=== PATIENT | male | born 1975 | race Hispanic/Latino ===

== ENCOUNTER 2016-10-10 12:20 | Emergency (ER) | payer OTHER ==
[~2016-10-10] VITALS: Ht 172.7 cm; Wt 77.3 kg
[~2016-10-10 12:20] MED LIST: NPR500T PO
[2016-10-10 12:25] VITALS: BP 138/76; PULSE 74; RESP 18; O2SAT 99
--- NOTE | 2016-10-10 12:40 | ED.REPORT ---
HPI-Back Pain Under 42 Date of Service Oct 10, 2016 ED Provider: History of Present Illness: lifting a piece of machinery, had pain in stomach in center first, let the machine go and then lifted machine again. No pain in stomach after that, then pain later in the back on the right lower. Happened around 330 yesterday. machine weighs a great deal, no one tries to lift it by themselves. . Works in [employer], [employer]. has not taken any medication. Did not go to work today. Off on thursday and thursday. primary care is [facility] 10/06 Nursing Notes Stated Complaint: BACK AND ABDOMINAL PAIN Chief Complaint: Back Pain or Injury Nursing Notes Reviewed: Yes Allergies: Coded Allergies: No Known Allergies (Unverified Allergy, Unknown, 01/25/15) Scheduled PRN Naproxen (Naproxen) 500 Mg Tab 500 MG PO BID PRN PRN For Pain General Time Seen by MD: 12:39 Chief Complaint Back pain Hx Obtained From: Patient Sudden in Onset?: Yes Caused by: Lifting Past Medical History Past Medical History Denies Denies: Asthma, Diabetes mellitus Past Surgical History Denies Smoking History Never Smoker Social History Alcohol Use: Denies alcohol use Drug Use: Denies drug use Occupation lives with girlfriend, works in [employer] Ambulatory Status Independent Review of Systems Basic Review of Systems Eyes: Vision NL, No discharge Hematologic: No bleeding, No bruising Psychiatric: Normal thought content Physical Exam Initial Vital Signs Vital Signs (First) Date Time Temp Pulse Resp B/P Pulse Ox O2 Delivery O2 Flow Rate FiO2 10/10/16 12:25 36.0 74 18 138/76 99 Room Air Initial VS: Reviewed, Vital signs normal Head / Eyes: Atraumatic, Normocephalic, PERRL ENT: Mucous membranes moist, Conjunctiva normal, No scleral icterus Neck: Supple, Non-tender, Full range of motion Respiratory: Breath sounds normal, Clear to auscultation, No respiratory distress Cardiovascular: Heart sounds normal, Intact distal pulses Abdomen / GI: Soft, Non-tender, No guarding, No rebound, No distention Lymphatic: No lymphadenopathy Extremities: Vascular intact, Neuro intact, No swelling, No tenderness Skin: Warm, Dry, No cyanosis Psychiatric: Mood/affect normal, Behavior normal, Normal thought content General/Constitutional: Awake, Alert, No acute distress tender on right lumbar area, no midline tenderness, no sign of any rash, no flank pain Neurologic: Oriented X3, Speech NL, No motor deficits, No sensory deficits, CN II - XII intact, Reflexes equal bilat, Cerebellar NL, Memory NL, Gait NL Respiratory / Chest: Atraumatic, Breath sounds NL, Breath sounds = bilat, No respiratory distress Cardiovascular: Heart rate NL, Regular rhythm, Heart sounds NL, No gallop Abdomen: Atraumatic, Soft, Non-tender, McBurney's non-tender Interpretation & Diagnostics Lab Results Interpretation Test 10/10/16 13:26 Hold Urine Received (Received) Lab Results Interpretation: urine is negative Re-Eval/Medical Decision Med Decision/Clinical Course 41 year old presents for evualation of right lower back pain which occurred while lifting a heavy piece of machinery yesterday. Patient lifted the mechinery by himself intiially and had abd pain around the umblicus, dropped the machine, then went to pick up attendant the machine again. Pain in the right side started after picking up the machine. No sign of any rash. no bony tenderness, urine is negative. Excellent range of motion Discharge & Departure Impression: Primary Impression: Lumbosacral strain Encounter type: initial encounter Qualified Code: S39.012A - Strain of muscle, fascia and tendon of lower back, initial encounter Disposition: Home Patient Instructions: Low Back Strain (ED) Additional Instructions: The urine looks good. No sign of blood. The exam is reassuring. Continue with ketorolac, 10 mg up to 4 times a day as needed for pain. Can use hydrocodone 1 at night as needed for severe unrelenting pain. Can use visteral 50 mg during the day to help with muscle spasms. Off work today, OK to return to work next week but no lifting more than 5 lbs for a week. This should be mostly resolved in a week or so. If it is not, please follow with Dr. Dobson. Make sure you ask for help with heavy lifting. Referrals: Skyler Dobson MD EDSupervising Provider for APC: Kit Arriaza DO copies to: Skyler Dobson MD, Sue ARNP Oct 10, 2016 12:40
[2016-10-10 14:18] VITALS: BP 121/69; PULSE 62; RESP 14; O2SAT 98
== END 2016-10-10 14:19 | disposition home or self-care (01) ==
LOC: SED 12:20
DX: S39.012A Strain of muscle, fascia and tendon of lower back, initial encounter (principal); X50.0XXA Overexertion from strenuous movement or load, initial encounter; Y93.89 Activity, other specified; Y92.69 Other specified industrial and construction area as the place of occurrence of the external cause; Y99.0 Civilian activity done for income or pay
CPT/HCPCS: 96372; 99284; J1885